=== PATIENT | male | born 1985 | race American Indian/Alaskan Native ===

== ENCOUNTER 2019-02-03 20:04 | Emergency (ER) | payer BC ==
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
[2019-02-03 20:22] VITALS: BP 137/97
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
[2019-02-03] MEDS ORDERED: IBUPROFEN PO ONE (21:29)
[2019-02-03] MEDS ORDERED: TYLENOL PO ONE (21:30)
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
== END 2019-02-03 21:45 | disposition home or self-care (01) ==
LOC: ED 20:04
DX: S86.911A Strain of unspecified muscle(s) and tendon(s) at lower leg level, right leg, initial encounter (principal); M62.830 Muscle spasm of back; I10 Essential (primary) hypertension; V49.49XA Driver injured in collision with other motor vehicles in traffic accident, initial encounter; Y93.89 Activity, other specified; Y92.410 Unspecified street and highway as the place of occurrence of the external cause; Y99.8 Other external cause status
CPT/HCPCS: 72100